=== PATIENT | male | born 1995 | race Two or more races ===

== ENCOUNTER 2024-12-09 17:51 | Inpatient (IN) | payer OTHER ==
[2024-12-09 18:02] VITALS: BMI 22.0
[2024-12-09] MEDS ORDERED: LOPERAMIDE HCL 2 MG CAPSULE PO PRN (19:09)
[2024-12-09] MEDS ORDERED: ACETAMINOPHEN 325 MG TABLET (FP) PO PRN (19:09)
[2024-12-09] MEDS ORDERED: DICYCLOMINE HCL 10 MG CAPSULE PO PRN (19:09)
[2024-12-09] MEDS ORDERED: ONDANSETRON *ODT* 4 MG TABLET SL PRN (19:09)
[2024-12-09] MEDS ORDERED: MAG HYDROX/AL HYDROX/SIMETH 30 ML UNIT-DOSE CUP PO PRN (19:09)
[2024-12-09] MEDS ORDERED: BENZONATATE 200 MG CAPSULE PO PRN (19:09)
[2024-12-09] MEDS ORDERED: MAGNESIUM HYDROX 2400MG/30ML ORAL SUSPENSION 30 ML CUP PO PRN (19:09)
[2024-12-09] MEDS ORDERED: BENZOCAINE/MENTHOL (CHLORASEPTIC ) LOZENGE MM PRN (19:09)
[2024-12-09] MEDS ORDERED: IBUPROFEN 400 MG TABLET (FP) PO PRN (19:09)
[2024-12-09] MEDS ORDERED: POLYETHYLENE GLYCOL (HEALTHYLAX) 3350 17 GM PACKET PO PRN (19:09)
[2024-12-09] MEDS ORDERED: guaiFENesin 600 MG TABLET.ER (FP) PO PRN (19:09)
[2024-12-09] MEDS ORDERED: NALOXONE (NARCAN) HCL 4 MG/0.1 ML SPRAY NS PRN (19:09)
[2024-12-09] MEDS ORDERED: BISMUTH SUBSALICYLATE 524 MG/30 ML PO PRN (19:09)
[2024-12-09] MEDS: IBUPROFEN 600 MG TABLET (FP) PO PRN (21:09)
[2024-12-09] MEDS: MELATONIN 5 MG TABLETS PO SCH (21:09)
[2024-12-09] MEDS: METHOCARBAMOL 500 MG TABLET PO PRN (21:11)
[2024-12-09] MEDS: THIAMINE 100 MG TABLET PO SCH (22:49)
[2024-12-10] MEDS: BUPRENORPHINE/NALOXONE 4 MG/1 MG FILM PACKET SL SCH (06:16)
[2024-12-10] MEDS: hydrOXYzine PAMOATE 25 MG CAPSULE (FP) PO PRN (07:34)
[2024-12-10] MEDS: PRENATAL VITAMINS W/ FOLIC ACID TABLET (FP) PO SCH (10:09)
[2024-12-10] MEDS: NICOTINE POLACRILEX 2 MG GUM BUC PRN (10:10)
[2024-12-10] MEDS ORDERED: NICOTINE POLACRILEX 2 MG LOZENGE BC PRN (10:27)
[2024-12-10] MEDS: NICOTINE 21 MG/24 HOURS TOPICAL PATCH TD SCH (10:34)
[2024-12-10 10:36] LABS: MCHC 32.7 g/dl (32.3-36.5); MEAN CELL VOLUME 89.6 fl (79.0-92.2); MEAN PLT VOLUME 11.2 fl (9.4-12.4); RDW 13.2 % (11.9-15.3)
[2024-12-10 11:05] LABS: GLUCOSE,RANDOM 124 mg/dL (74-106); TOT PROT 6.3 g/dl (6.4-8.2)
[2024-12-10 11:06] LABS: CO2 25 mmol/L (21-32)
[2024-12-10 11:08] LABS: ALK PHOS 75 U/L (40-150)
[2024-12-10 11:10] LABS: SGOT/AST 21 U/L (5-34); SGPT/ALT 14 U/L (0-55)
[2024-12-10 11:11] LABS: CREATININE 0.88 mg/dL (0.55-1.3)
[2024-12-10] MEDS: NICOTINE POLACRILEX 4 MG LOZENGE BC PRN (18:18)
[2024-12-11] MEDS: BUPRENORPHINE/NALOXONE 8 MG/2 MG FILM PACKET SL ONE (06:04)
[2024-12-11 06:52] VITALS: RESP 16
[2024-12-11 08:50] VITALS: BP 108/65; PULSE 60; TEMP 97.5
== END 2024-12-11 10:15 | disposition home or self-care (01) | DRG 773 ==
LOC: YASAS 17:51 → Y6N 20:32
PROVIDERS: ADMIT Neuromusculoskeletal Medicine & OMM; ATTEND Allergy & Immunology
PROC: HZ2ZZZZ Detoxification Services for Substance Abuse Treatment (ICD-10-PCS; principal; 2024-12-09)
DX: F11.20 Opioid dependence, uncomplicated (principal); F10.20 Alcohol dependence, uncomplicated; F14.20 Cocaine dependence, uncomplicated; F12.20 Cannabis dependence, uncomplicated; F17.210 Nicotine dependence, cigarettes, uncomplicated; F19.282 Other psychoactive substance dependence with psychoactive substance-induced sleep disorder; F31.9 Bipolar disorder, unspecified; F29 Unspecified psychosis not due to a substance or known physiological condition; F41.8 Other specified anxiety disorders; J45.909 Unspecified asthma, uncomplicated
CPT/HCPCS: 36415; 80053; 80307; 85027; 86780; 93005; 93010